=== PATIENT | female | born 2000 | race Two or more races ===

== ENCOUNTER 2022-01-12 11:13 | Emergency (ER) | payer MEDICAID, OTHER ==
[~2022-01-12] VITALS: Ht 160 cm; Wt 63.5 kg
[2022-01-12] MEDS ORDERED: SOD CHL 0.45% 1,000 ML IV ONE (14:00)
[2022-01-12] MEDS ORDERED: cefTRIAXone 1GM/50ML D5W 50 ML IV ONE (14:00)
[2022-01-12 14:42] LABS: Basophils # (auto) 0.1 10 ^3/uL (0-0.2); Basophils % (auto) 0.4 % (0.0-2.0); Eosinophils # (auto) 0 10 ^3/uL (0-0.8); Eosinophils % (auto) 0.1 % (0.0-7.0); Hematocrit 38.7 % (36.0-46.0); Hemoglobin 12.6 g/dL (12.2-16.2); Lymphocytes # (auto) 1.8 10 ^3/uL (0.4-5.4); Lymphocytes % (auto) 10.7 % (10.0-50.0); Mean Corpuscular Hemoglobin 27.5 pg (28.0-32.0); Mean Corpuscular Hgb Conc. 32.5 g/dL (32.0-36.0); Mean Corpuscular Volume 84.6 fL (80.0-100.0); Monocytes # (auto) 1.2 10 ^3/uL (0-1.3); Monocytes % (auto) 7.6 % (0.0-12.0); Neutrophils # (auto) 13.3 10 ^3/uL (1.6-8.6); Neutrophils % (auto) 81.2 % (37.0-80.0); Red Blood Cells 4.58 10^6/uL (4.0-5.20); Red Cell Distribution Width 14.3 % (11.8-14.3); White Blood Cell 16.4 10^3/uL (4.4-10.8)
[2022-01-12 14:58] LABS: Albumin 3.9 g/dL (3.4-5.0); Calcium 9.1 mg/dL (8.5-10.1); Potassium 4.1 mmol/L (3.5-5.1)
[2022-01-12 15:02] LABS: BUN/Creatinine Ratio 19.4; Bilirubin, Total 1.9 mg/dL (0.2-1.0); Total Protein 8.2 g/dL (6.4-8.2)
[2022-01-12] MEDS ORDERED: VANCOMYCIN PER PHARMACY 0 MG IV SCH (16:30)
[2022-01-12] MEDS ORDERED: SODIUM CHLORIDE 0.9% 1,900 ML IV ONE (16:30)
[2022-01-12 16:49] LABS: Urine Bacteria MOD /hpf (None Seen); Urine Blood TRACE /uL (Negative); Urine Mucus FEW (None Seen); Urine Specific Gravity 1.032 (1.001-1.035); Urine WBC 18 /hpf (0 - 5)
[2022-01-12] MEDS ORDERED: IOHEXOL 300 MG/ML 100ML BOTTLE IJ ONE (17:05)
[2022-01-12 19:39] LABS: Bilirubin, Direct 0.4 mg/dL (0-0.2); Bilirubin, Total 2.1 mg/dL (0.2-1.0)
[2022-01-12] MEDS ORDERED: VANCOMYCIN 1GM/250ML 250 ML IV SCH (20:00)
[2022-01-12] MEDS: PIPERACILLIN-TAZO 4.5GM 100 ML IV SCH ×2 (22:33→23:01)
[2022-01-13 01:32] VITALS: BP 118/72
== END 2022-01-13 01:54 | disposition short-term general hospital (02) ==
LOC: ER 11:13
DX: J36 Peritonsillar abscess (principal); Z32.02 Encounter for pregnancy test, result negative; Z20.822 Contact with and (suspected) exposure to COVID-19
CPT/HCPCS: 36415; 70491; 76705; 80053; 81001; 81025; 82247; 82248; 83605; 85025; 87040; 87070; 87086; 87426; 87880; 96365; 96366; 96367; 99285; J0696; J2543; J3370; J7030; Q9967